=== PATIENT | female | born 1990 | race Caucasian/White ===

== ENCOUNTER 2022-02-12 04:49 | Inpatient (IN) | payer BC, SELFPAY ==
[2022-02-12] VITALS (29 sets, daily range): BP systolic 100–131; BP diastolic 66–81; PULSE 74–97; RESP 16–20; TEMP 36.3–36.8; O2SAT 97–100; BMI 45.4
[2022-02-12] MEDS: LACTATED RINGERS 1000 ML 1,000 ML 999 ML IV (05:30)
[2022-02-12 05:40] LABS: Hemoglobin* 12.9 gm/dL (12.0-16.0)
[2022-02-12 06:20] LABS: SARS PCR* Negative SARS-CoV-2 (Negative)
[2022-02-12] MEDS: LACTATED RINGERS 1000 ML 1,000 ML 125 ML IV ×2 (07:00→09:00)
--- NOTE | 2022-02-12 07:52 | W.ANESCHARGE ---
Anesthesia Charges Start Date/Time Anesthesia Start Date: 02/12/22 Anesthesia Start Time: 07:22 Stop Date/Time Anesthesia Stop Date: 02/12/22 Anesthesia Stop Time: 08:47 Summary Emergency: No
--- NOTE | 2022-02-12 08:01 | SUR.OPER ---
Dr. Goodrich declined sending specimen to pathology
--- NOTE | 2022-02-12 08:37 | P.OBPRC_ITS ---
Procedure Pre-op/Post-op diagnoses: Pre-Op/Post-Op Diagnoses Operation Date: 02/12/22 07:00 <No data on this case meets the specified criteria> Procedure Done: only Procedure Details: Procedures Operation Date: 02/12/22 07:00 Actual Procedure Side Surgeon p Repeat Section Shae Goodrich MD Estimated blood loss (mL): 213 Disposition: floor Anesthesia type: TAP block Complications: None. Tunas Infant total score - 1 minute: 9 total score - 5 minute: 9 OB Delivery Proc Additional Procedures Tubal Ligation at the time of : No Procedure Details: PREOPERATIVE DIAGNOSES: 1. Intrauterine at 39 0/7 weeks' gestation. 2. History of prior low transverse section x1, desiring repeat. 3. Breech presentation, confirmed last Friday at [facility]. POSTOPERATIVE DIAGNOSES: 1. Intrauterine at 39 0/7 weeks' gestation. 2. History of prior low transverse section x1, desiring repeat. 3. Vertex presentation. REFERRING PROVIDER: Ilan. NAME OF PROCEDURE: Repeat low transverse section. SURGEON: Kp. ANESTHESIA: Spinal. COMPLICATIONS: None ESTIMATED BLOOD LOSS: 213 mL. DRAINS: Hernandez to gravity. FINDINGS: Live-born male infant, cephalic presentation, Apgars 9 and 9 at 1 and 5 minutes respectively. weight pending. Normal appearing uterus, tubes, and ovaries. PROCEDURE: After obtaining informed consent, the patient was taken to the operating room where spinal anesthesia was obtained and found to be adequate. She was prepared and draped in the normal sterile fashion in the dorsal supine position with a leftward tilt. A Pfannenstiel skin incision was made with a scalpel along the line of the patient's previous Pfannenstiel scar. This incision was carried down to the underlying layer of fascia with the Bovie. The fascia was incised in the midline and the incision extended laterally. The superior and inferior aspects of the fascial incision were grasped with Sanjay clamps, elevated and the underlying rectus muscles dissected off sharply and with electrocautery. The rectus muscles were then in the midline. The Walter O retractor was then placed into the incision. The lower uterine s egment was then incised in a transverse fashion with the scalpel. Upon entry into the uterus, clear amniotic fluid was noted. The uterine incision was extended laterally with blunt finger fractionation. The 's head was delivered atraumatically, followed by the remainder of the 's body. The nose and mouth were suctioned with the bulb suction. The cord was doubly clamped and cut, and the infant was handed off the field to Dr. Talavera for evaluation. Tranexamic acid 1000 mg was administered intravenously following cord clamp. The placenta was delivered spontaneously with umbilical cord traction and fundal massage. The uterus briefly inverted as the placenta was moderately adherent. The uterus was manually manipulated into the proper orientation. 20 units of IV Pitocin was added to the IV fluids and bimanual massage performed to slow bleeding. The uterus was cleared of all clots and debris. The uterine incision was reapproximated in a running locking fashion with a 0 chromic suture. A 2nd layer of the same suture was used to imbricate in horizontal fashion. The gutters were irrigated and suctioned. All instruments and retractors were removed. The anterior peritoneum was reapproximated in a running fashion with a 3-0 Vicryl suture. The subfascial tissues were carefully inspected and hemostasis assured. The fascia was reapproximated in a running fashion with a looped 0 Maxon suture. The subcutaneous tissues were copiously irrigated. Hemostasis was assured. The subcutaneous fat layer was reapproximated with interrupted sutures of 3-0 plain gut. The skin was closed in a subcuticular fashion with 4-0 Vicryl. LiquiBand and dressing were applied. The patient tolerated the procedure well. Sponge, lap, needle, and instrument counts were reported as correct x2. The patient was taken to the recovery room, awake, and in stable condition. She did receive 2 grams of IV Ancef preoperatively.
--- NOTE | 2022-02-12 08:40 | W.PM.NB ---
Nerve Block Nerve Block Time Seen by Provider: 08:35 Date Seen: 02/12/22 Type of block requested by surgeon for post-operative analgesia: TAP Side: bilateral Time out performed: Yes Verification of patient name: Yes Verification of date of : Yes Site marking: site marked Name of person performing procedure: Pk Continuous monitoring Was continuous monitoring of O2 sat, B/P, cardiac monitor technician, recorded every 15 minutes?: Yes Procedure Checklist: sterile prep, needles and gloves Ultrasound guided. Images saved: Yes Medications given in 5ml increments after negative aspiration: Marcaine %: 0.25 mL: 30 Needle gauge: 20 and Exparel mL: 10 Patient tolerated procedure well: Yes Additional comments: Needle noted adjacent to nerve Block Charges Block Charge (with Pro Fee): TAP Bilateral Use of Ultrasound Machine for Block: Yes- US Guidance/pain block
--- NOTE | 2022-02-12 08:57 | W.ANESCHARGE ---
Anesthesia Charges Start Date/Time Anesthesia Start Date: 02/12/22 Anesthesia Start Time: 07:22 Stop Date/Time Anesthesia Stop Date: 02/12/22 Anesthesia Stop Time: 08:47 Summary Emergency: No
[2022-02-12] MEDS: KETOROLAC 30 MG/ML inj IVP ×2 (14:20→20:09)
[2022-02-12] MEDS: diphenhydrAMINE 50 MG/ML inj 12.5 MG IVP (23:49)
[2022-02-13] VITALS (8 sets, daily range): BP systolic 101–119; BP diastolic 67–79; PULSE 68–83; RESP 16; TEMP 36.5–37.2; O2SAT 97–100
[2022-02-13] MEDS: KETOROLAC 30 MG/ML inj IVP ×3 (02:38→14:42)
[2022-02-13 08:00] LABS: Hemoglobin* 12.1 gm/dL (12.0-16.0)
--- NOTE | 2022-02-13 08:17 | PM.OBPNCS1 ---
OB - PN: A/P Plan day: 1 Plan: routine postop care Comments: Anticipate discharge tomorrow. Discussed postop activity restrictions and follow up, home going medications. OB - PN: Subj Subjective Date Seen: 02/13/22 Patient comments: no complaints, pain well controlled and tolerating diet [place] status: Narrative: The patient is a 31-year-old 3 now para 2012 is postoperative day 1 following a repeat low transverse section yesterday morning. She feels well. The urinary catheter was removed last night. She is ambulating and voiding without difficulty. She is tolerating regular diet. Working on . Adequate pain control. OB - PN: Obj Exam Physical Exam: Vital signs: Temp Pulse Resp BP Pulse Ox O2 Del Method 98.1 F 80 16 107/77 98 02/13/22 05:27 02/13/22 05:27 02/13/22 05:50 02/13/22 05:27 02/13/22 05:27 02/13/22 05:27 Constitutional: Constitutional: no acute distress and cooperative Routine Respiratory Exam: Respiratory: Present CTA bilaterally Routine Cardiovascular Exam: Cardiovascular: Present RRR Routine Abdominal Exam: Abdominal: Present soft; Absent tenderness Fundus: Present firm Detailed Abdominal Exam: Comments: Incision bandage, intact. Bandage not removed as patient was sitting up during the examination. Routine Extremities Exam: Extremities: Absent pedal edema or tenderness Routine Psychiatric Exam: Psychiatric: Present normal affect Urinary Catheter Management: Urethral: Cath placed during this visit: yes, but has since been removed by the nurse Reason for continuing: surgical procedure Removal date: 02/12/22 Removal time: 20:45 OB - PN: Obj Data Labs Labs: Laboratory Results - last 24 hr 02/13/22 07:33 Hgb 12.1
[2022-02-13] MEDS: DOCUSATE SODIUM 100 MG CAPSULE PO (09:03)
[2022-02-13] MEDS: ACETAMINOPHEN 500 MG TABLET 1000 MG PO (18:08)
[2022-02-13] MEDS: OXYCODONE 5 MG TABLET PO (21:58)
[2022-02-13] MEDS: IBUPROFEN 600 MG TABLET PO (21:59)
[2022-02-14 00:34] VITALS: BP 128/84; PULSE 85; RESP 16; TEMP 37.3; O2SAT 98
[2022-02-14] MEDS: ACETAMINOPHEN 500 MG TABLET 1000 MG PO (00:48)
[2022-02-14] MEDS: IBUPROFEN 600 MG TABLET PO (08:20)
--- NOTE | 2022-02-14 08:36 | PM.OBDSCS1 ---
DS: Providers Provider Date Seen: 02/14/22 Date of admission: 02/12/22 04:49 Primary care physician: Belinda Mckinley MD Admitting Clinician: Shae Goodrich MD Attending Physician on discharge: Shae Goodrich MD Date of Discharge: 02/14/22 Exam Const: Vital Signs, click to edit/add: Vital Signs - 24 hr 02/13/22 12:42 02/13/22 12:30 02/13/22 18:08 Temperature 98.5 F 99.0 F Pulse Rate [Pulse Oximeter] 76 Respiratory Rate 16 Blood Pressure [Ri ght Arm] 113/76 Pulse Oximetry 100 Oxygen Delivery Me thod Room Air 02/13/22 18:30 02/14/22 00:34 Temperature 97.7 F 99.1 F Pulse Rate [Pulse Oximeter] 83 85 Respiratory Rate 16 16 Blood Pressure [Ri ght Arm] 119/79 128/84 Pulse Oximetry 98 Oxygen Delivery Me thod Room Air OB - DS: Summary Hospital Course Hospital Course: The patient is a 31 year old G 3 P 2 at 39.0 weeks gestation that was admitted to the Center on 02/12/22 for repeat . She had an uncomplicated delivery. She delivered a viable male infant. She is breast feeding and denies concerns of complications with how it is going. The patient feels well.? The pain is well controlled with current medications.? She has no new complaints.? Urinary output is adequate and she is voiding without difficulty.? Has a good appetite, is tolerating a general diet, is passing flatus, and has not had a bowel movement.? Has?scant amount of rubra lochia.? She is ambulating well and denies any dizziness.? the patient has done well. Discharge Examination? GENERAL APPEARANCE:? normal affect, alert, no distress? MOOD:? appropriate? CHEST:? clear to auscultation and percussion? HEART:? regular rate and rhythm? ABDOMEN:? soft, non-tender the uterine fundus is 2 cm Below Umbilicus, Midline and is appropriate for the stage of recovery.?Her incision is well approximated without drainage, redness, swelling or bruising. PERINEUM:? mild edema of the perineum EXTREMITIES:? normal and no edema? Patient has no complaints? No active bleeding?? Doing well? She is requesting discharge home today.? Peripartum Data Procedures: Procedures Operation Date: 02/12/22 07:00 Actual Procedure Side Surgeon p Repeat Section Shae Goodrich MD complications: none Gender: Male Discharge Plan: Home Status at Discharge Functional status at discharge: independent ambulation Overall status at discharge: patient is progressing back to baseline Time Spent with Patient Time attestation: Total time spent providing and/or coordinating discharge services: Discharge Plan Discharge Disposition: Home, Self-Care Date of Admission: 02/12/22 04:49 Primary Care Provider: Belinda Mckinley Condition: Stable Anticipated Discharge Date/Time: 02/14/22 11:00 Discharge Medications: New docusate sodium 100 mg Capsule 100 mg PO DAILY Qty: 30 0RF ibuprofen 600 mg Tablet 600 mg PO Q6H PRN (Reason: Pain) Qty: 30 0RF oxycodone 5 mg Tablet 5 mg PO Q6H PRN (Reason: Pain) Qty: 20 0RF Continued levothyroxine 150 mcg capsule 150 mcg PO QDAY DHA 200 mg capsule PO Discharge Orders: Discharge Order (Routine); Ordered 02/14/22 Ordered By: Zenaida Palm Patient Education: OB Over the Counter Medication Information, OB /Breast Feeding Additional Instructions: Discharge instructions were reviewed with the patient including signs and symptoms of infection and home going medications Lifting Restrictions: 20 pounds for 6 weeks No not submerge incision under water X 2 weeks? Nothing vaginally for 6 weeks: no tampons or intercourse Do not drive while taking narcotic pain medication(s) Off Work or School for 8 weeks 2-week visit with Dr. Goodrich: incision check. 6-week visit with Dr. Talavera: exam, discuss infant feeding concerns, review control options and screen for anxiety/depression.. consultation services are available to all mothers and babies for the first year after delivery.? To make an appointment, please call [phone]. Discharge Diet: Regular Follow Up Appointments: Belinda Mckinley MD [Primary Care Provider] - Shae Goodrich MD [Staff Physician] - Ksenia Talavera MD [Staff Physician] - Forms: [facility] Environmental Info Instructions
[2022-02-14 10:03] VITALS: BP 121/82; PULSE 68; RESP 16; TEMP 36.9; O2SAT 99
[2022-02-14] MEDS: OXYCODONE 5 MG TABLET PO (11:12)
== END 2022-02-14 11:20 | disposition home or self-care (01) | DRG 540 ==
PROVIDERS: Admitting Provider Obstetrics & Gynecology; PCP Obstetrics & Gynecology; Visit Provider Obstetrics & Gynecology
PROC: 10D00Z1 Extraction of Products of Conception, Low, Open Approach (ICD-10-PCS; CPT 59514; principal; 2022-02-12 07:00)
DX: O34.211 Maternal care for low transverse scar from previous cesarean delivery (principal); Z86.16 Personal history of COVID-19; O99.284 Endocrine, nutritional and metabolic diseases complicating childbirth; E03.9 Hypothyroidism, unspecified; Z37.0 Single live birth; Z3A.39 39 weeks gestation of pregnancy
CPT/HCPCS: 01961; 36415; 64488; 76942; 85018; 86850; 86900; 86901; 87635; A9270; C9290; J1200; J1885; J2274; J2405; J2590; J3490; J7120

== ENCOUNTER 2022-02-22 10:53 | Outpatient (CLI) | payer BC, SELFPAY ==
--- NOTE | 2022-02-26 12:49 | P.LACCB_ITS ---
Consult Note - Mom Date of Visit Date of visit: 02/26/22 area development consultant: Enriqueta Johnson Visit Code: Visit Patient's Information Phone number: [phone] : 3 Para: 2 Allergies No Known Allergies Allergy (Unknown, Verified 02/13/22 16:28) Mother's Medical History: Medical History (Updated 02/22/22 @ 00:01 by ) History of spontaneous Delivery Information Delivery type: Repeat Section Weeks Gestation: 39.0 Gestational Age: AGA Weight: 3.354 g Discharge Weight: 3.053 kg Baby's Information Baby's Age at Visit: 10 days Baby's Provider or Clinic: Dr. Talavera Jaundice: Yes (to abdomen) Reason for Consult Reason for Consult: concern for latch and baby's weight gain Past Experience Past Experience: No (attempted to nurse her older child, not successful) Current Frequency of Day Feedings: about every 3 hours around the clock Both Breasts: Yes Suck: fairly strong Latch: wide Length of Time: 30 - 45 minutes Pumping Pumping: Yes (1 - 2 times/day) Quantity Pumped: about 1 oz total Supplementing EMB Supplement: Yes (POC give 1 oz EBM or formula after every feeding) Formula Supplement: Yes Baby Elimination Number of Wet Diapers a Day: 6 or more Number of BM a Day: 2 - 3; yellow and seedy Breast/Nipple Condition Breast Information: see note Maternal Nipple Condition - Left: Common Nipple Maternal Nipple Condition - Right: Common Nipple Sore Nipples: No Onsite Pre-Feed weight: 3.096 kg Post-Feed weight: 3.134 kg Milk Transferred (mL): 38 Pre-Nursing Left Nipple: Within Normal Limits Pre-Nursing Right Nipple: Within Normal Limits Post-Nursing Left Nipple: Within Normal Limits Post-Nursing Right Nipple: Within Normal Limits Assessments/Interventions Assessments/Interventions: Met with mom and this now 10 day old ex- term AGA baby for consult.? Mom is concerned about the latch and isn't sure of her supply stating baby was seen by PCP on 04/21 and was 10% below BW at 7 DOL.? Since that visit mom has been nursing baby on both sides for 30 - 45 minutes, then supplementing with 1 oz EBM or formula.? She's pumping with a Spectra pump 1 - 2 times/day getting on average 1 oz total each time.? Breasts are symmetrical but more widely spaced (not quite 1.5 inches).? Mom denies any signs of breast growth during such as tenderness in the first trimester or a darkening of the areola.? Also reports supply issues with her first child.? Nipples are everted and don't flatten or retract on compression; no damage noted.? Baby has gained 21 grams/day since his visit on 02/19 and is now 8% below BW.? POC report he may have had a cephalohematoma on the right side of his head after delivery and that he prefers turning his head to the right; equal ROM when moving his extremities.? Baby has had one visit with a chiropractor and f/u scheduled for 02/26.? His palate is WNL as are both his upper and lower fren ulum.? He has a fairly strong suck when sucking on a finger.? His tongue extends past the gum line and has good lateral movement.? Mom latched baby to both sides without difficulty.? He has a wide latch (better on her right side), mom is comfortable.? He nursed for about 10 minutes on both sides, swallowing was heard and mom can tell the difference between a pacifying and nutritive suckle.? He transferred 38 ml. Plan: 1. Continue nursing baby every 2 - 3 hours (not letting him go past three hours for now).? Continue offering both sides and working to keep him awake and active at the breast.? OK to keep the nursing sessions to 30 minutes. 2. Continue supplementing with at least one oz after every feeding.? He may want 1.5 - 2 oz which is normal for a baby his age. 3. Suggested she pump after as many feedings as she can, pick a number of times she can do consistently and not feel overwhelmed. 4. Could consider herbal supplement and we reviewed either [facility] or [place]. 5. Encouraged the f/u with the chiropractor. 6. Will f/u with PCP on 02/26 and I will f/u by phone on 03/01. Meds Home Medications and Allergies Home Medications Medication Instructions Recorded Confirmed Type docosahexaenoic acid 200 mg mg PO 12/20/21 02/01/22 History capsule ( DHA) levothyroxine 150 mcg capsule 150 mcg PO QDAY 12/20/21 02/01/22 History Allergies Allergy/AdvReac Type Severity Reaction Status Date / Time No Known Allergies Allergy Unknown Verified 02/13/22 16:28
== END 2022-02-22 10:54 | disposition home or self-care (01) ==
LOC: OB LAC 10:53
PROVIDERS: PCP Family Medicine; Visit Provider Family Medicine
DX: Z39.1 Encounter for care and examination of lactating mother (principal)
CPT/HCPCS: 99211